=== PATIENT | female | born 1980 | race African-American/Black ===

== ENCOUNTER 2018-10-08 15:47 | Inpatient (IN) ==
[2018-10-08] MEDS ORDERED: BUTORPHANOL 2 MG/ML VIAL IV PRN (16:08)
[2018-10-08] MEDS ORDERED: MEPERIDINE 50 MG/1 ML VIAL IV PRN (16:08)
[2018-10-08] MEDS ORDERED: ONDANSETRON 4 MG/2 ML VIAL IV PRN ×2 (16:08→18:17)
[2018-10-08] MEDS ORDERED: PENICILLIN G POTASSIUM INJ 5,000,000 UNIT in SODIUM CHLORIDE 0.9% 100 ML IV ONE (16:13)
[2018-10-08] MEDS ORDERED: MAGNESIUM SULF RIDER 4 GM in PREMIX 1 EACH IV ONE (16:15)
[2018-10-08] MEDS ORDERED: hydrALAZINE 20 MG/1 ML VIAL ONE (16:17)
[2018-10-08] MEDS ORDERED: MAGNESIUM SULF RIDER 100 ML IV ONE (16:18)
[2018-10-08] MEDS: hydrALAZINE 20 MG/1 ML VIAL IV PRN ×2 (16:18→16:38)
[2018-10-08 16:27] LABS: Basophils % 0.2 % (0.0-0.8); Hematocrit 37.9 VOL% (35.7-47.0); Hemoglobin 13.1 GM/DL (12.0-16.0); Immature Granulocytes % 0.9 %; Immature Granulocytes Absolute 0.08 #; Lymphocytes # 1.9 10*3/uL (1.4-4.0); Mean Corpuscular HGB Conc 34.6 GM/DL (32-36); Mean Corpuscular Hemoglobin 34 PG (27-34); Mean Corpuscular Volume 97.4 FL (87-102); Mean Platelet Volume 11.7 FL (9.6-12.0); Monocytes # 0.8 10*3/uL (0.11-0.8); Monocytes % 8.7 % (1.7-12.7); Neutrophils # 6.2 10*3/uL (1.4-7.4); Neutrophils % 69.2 % (38.7-73.9); Platelet Count 123 T/CUMM (130-400); Red Blood Count 3.89 MC/CUMM (3.8-5.5); Red Cell Distribution Width 14.1 % (9.3-17.3)
[2018-10-08] MEDS ORDERED: LACTATED RINGERS 1,000 ML IV SCH (16:30)
[2018-10-08] MEDS: MAGNESIUM SULF DRIP 40 GM/1,000 ML ML IV SCH (16:44)
[2018-10-08 16:55] LABS: Albumin 2.7 G/DL (3.4-5.0); Bilirubin,Direct 0.12 MG/DL (0.0-0.20); Bilirubin,Total 0.7 MG/DL (0.2-1.0); Calcium 9.2 MG/DL (8.5-10.1); Osmolality,Calculated 276.4 MOS/KG (273-304); Potassium 3.3 MMOL/L (3.5-5.1); Total Protein 6.7 G/DL (6.4-8.3); Uric Acid 5.7 MG/DL (2.6-6.0)
[2018-10-08] MEDS ORDERED: LABETALOL 20 MG/4 ML SYRINGE IV ONE ×3 (16:58→18:15)
[2018-10-08] MEDS ORDERED: OXYTOCIN/LR 30 UNIT/1,000 ML BAG IV ONE (17:03)
[2018-10-08] MEDS ORDERED: OXYTOCIN 10 UNIT/ML VIAL ONE (17:03)
[2018-10-08] MEDS ORDERED: miSOPROStol 200 MCG TABLET ONE (17:03)
[2018-10-08] MEDS ORDERED: METHYLERGONOVINE 0.2 MG/1 ML AMP ONE (17:04)
[2018-10-08] MEDS ORDERED: OXYTOCIN/LR 20 UNIT/1,000 ML BAG IV ONE ×2 (17:04→18:17)
[2018-10-08] MEDS ORDERED: CARBOPROST TROMETHAMINE 250 MCG/ML AMP IM ONE (17:04)
[2018-10-08 17:12] LABS: INR 0.9; PT Patient Result 9.4 SECS; Partial Thromboplastin Time 26.1 SECS (0-40)
[2018-10-08] MEDS ORDERED: LIDOCAINE 2% 20 ML VIAL ONE (17:29)
[2018-10-08 18:09] LABS: Cord Venous Blood HCO3 16.2 MMOL/L; Cord Venous Blood PCO2 50.8 MMHG; Cord Venous Blood PO2 28.2
[2018-10-08] MEDS ORDERED: LANOLIN 50% CREAM 0.3 OZ TUBE TOP PRN (18:17)
[2018-10-08] MEDS ORDERED: HYDROCORTISONE 2.5% RECTAL CREAM 30 GM TUBE TOP PRN (18:17)
[2018-10-08] MEDS ORDERED: ACETAMINOPHEN 325 MG TABLET PO PRN (18:17)
[2018-10-08] MEDS ORDERED: oxyCODONE/ACETAMINOPHEN 5-325 MG TABLET PO PRN ×2 (18:17)
[2018-10-08] MEDS ORDERED: MEASLES/MUMPS/RUBELLA VACCINE 0.5 ML VIAL SUBCUT ONE (18:17)
[2018-10-08] MEDS ORDERED: DIPH/TET/ACEL PERT BOOSTER VACCINE 0.5 ML VIAL IM ONE (18:17)
[2018-10-08] MEDS ORDERED: BENZOCAINE 20%/MENTHOL 0.5% SPRAY 56 GM CAN TOP PRN (18:17)
[2018-10-08] MEDS ORDERED: IBUPROFEN 800 MG TABLET PO PRN (18:17)
[2018-10-08] MEDS ORDERED: WITCH HAZEL PADS 100/JAR TOP PRN (18:17)
[2018-10-08] MEDS ORDERED: BISACODYL 10 MG SUPP RECTAL PRN (18:17)
[2018-10-08] MEDS ORDERED: RHO(D) IMMUNE GLOBULIN 300 MCG SYRINGE IM ONE (18:17)
[2018-10-08 18:23] LABS: Apearance,Urine CLEAR (Clear); Bacteria,Urine Occasional /HPF (Few); Bilirubin,Urine Negative (Negative); Blood, Urine Small mg/dL (Negative); Glucose,Urine (UA) 50 mg/dL (Negative); Hyaline Casts,Urine 1 /LPF (0-3); Ketones,Urine 20 mg/dL (Negative); Mucus,Urine Occasional /LPF (Occasional); Nitrite,Urine Negative (Negative); Protein,Urine 100 MG/DL; RBC,Urine 3 /HPF (0-4); Urine Color Yellow (Yellow); Urine Specific Gravity 1.019 (1.001-1.035); Urine Urobilinogen < 2.0 EU/DL (0.2-1.0); WBC,Urine 7 /HPF (0-6)
[2018-10-08 18:39] LABS: Barbiturates Screen,Urine Negative (Negative); Benzodiazepines Screen,Urine Negative (Negative); Cannabinoid Screen,Urine Negative (Negative); Opiate Screen,Urine Negative (Negative); Phencyclidine Screen,Urine Negative (Negative)
[2018-10-08] MEDS ORDERED: PENICILLIN G POTASSIUM INJ 2,500,000 UNIT in SODIUM CHLORIDE 0.9% 100 ML IV SCH (20:00)
[2018-10-08] MEDS ORDERED: LABETALOL 200 MG TABLET PO SCH (21:00)
[2018-10-08 23:43] LABS: HIV Antigen/Antibody Result Nonreactive (Nonreactive); Hepatitis B Surface Ag Quant 0.12 Index; Hepatitis B Surface Ag Result Negative (Negative); Rubella Antibody IgG 41.2 IU/ML
[2018-10-09 07:13] LABS: Basophils % 0.1 % (0.0-0.8); Eosinophils % 0.1 % (0.00-10.9); Hematocrit 35.5 VOL% (35.7-47.0); Hemoglobin 11.8 GM/DL (12.0-16.0); Immature Granulocytes % 0.5 %; Immature Granulocytes Absolute 0.06 #; Lymphocytes # 1.4 10*3/uL (1.4-4.0); Lymphocytes % 10.4 % (21.3-54.2); Mean Corpuscular HGB Conc 33.2 GM/DL (32-36); Mean Corpuscular Hemoglobin 33 PG (27-34); Mean Corpuscular Volume 98.1 FL (87-102); Mean Platelet Volume 12.1 FL (9.6-12.0); Monocytes # 1.1 10*3/uL (0.11-0.8); Monocytes % 8.6 % (1.7-12.7); Neutrophils # 10.4 10*3/uL (1.4-7.4); Neutrophils % 80.3 % (38.7-73.9); Platelet Count 106 T/CUMM (130-400); Red Blood Count 3.62 MC/CUMM (3.8-5.5); Red Cell Distribution Width 14.5 % (9.3-17.3)
[2018-10-09] MEDS: LABETALOL 100 MG TABLET PO SCH ×3 (08:40→20:27)
[2018-10-09] MEDS ORDERED: POTASSIUM CHLORIDE 20 MEQ TABLET PO SCH (09:00)
[2018-10-09] MEDS ORDERED: LABETALOL 200 MG TABLET PO SCH (09:00)
[2018-10-09] MEDS ORDERED: POTASSIUM CHLORIDE 20 MEQ TABLET PO ONE (11:30)
[2018-10-09] MEDS: DOCUSATE SODIUM 100 MG CAPSULE PO SCH ×2 (11:31→21:35)
[2018-10-09 13:08] LABS: Basophils % 0.1 % (0.0-0.8); Eosinophils % 0.1 % (0.00-10.9); Hematocrit 32.7 VOL% (35.7-47.0); Hemoglobin 10.9 GM/DL (12.0-16.0); Immature Granulocytes % 0.6 %; Immature Granulocytes Absolute 0.07 #; Lymphocytes # 1.5 10*3/uL (1.4-4.0); Lymphocytes % 12.7 % (21.3-54.2); Mean Corpuscular HGB Conc 33.3 GM/DL (32-36); Mean Corpuscular Hemoglobin 33 PG (27-34); Mean Corpuscular Volume 100.3 FL (87-102); Mean Platelet Volume 10.9 FL (9.6-12.0); Monocytes # 0.9 10*3/uL (0.11-0.8); Neutrophils # 9.1 10*3/uL (1.4-7.4); Neutrophils % 78.5 % (38.7-73.9); Platelet Count 103 T/CUMM (130-400); Red Blood Count 3.26 MC/CUMM (3.8-5.5); Red Cell Distribution Width 14.6 % (9.3-17.3); White Blood Count 11.5 T/CUMM (4-12)
[2018-10-09 13:28] LABS: INR 0.8; PT Patient Result 9.1 SECS; Partial Thromboplastin Time 26.4 SECS (0-40)
[2018-10-09 13:50] LABS: Alanine Aminotransferase 22 U/L (13-56); Albumin 2.1 G/DL (3.4-5.0); Alkaline Phosphatase 121 U/L (45-117); Aspartate Amino Transferase 22 U/L (0-37); Bilirubin,Total < 0.39 MG/DL (0.2-1.0); Blood Urea Nitrogen 8 MG/DL (7-18); Calcium 7.3 MG/DL (8.5-10.1); Glucose 106 MG/DL (74-106); Osmolality,Calculated 270.8 MOS/KG (273-304); Potassium 3.6 MMOL/L (3.5-5.1); Sodium 137 MMOL/L (136-145); Total Protein 5.5 G/DL (6.4-8.3); Uric Acid 5.8 MG/DL (2.6-6.0)
[2018-10-09] MEDS: MAGNESIUM SULF DRIP 40 GM/1,000 ML ML IV SCH (14:10)
[2018-10-10] MEDS: LABETALOL 100 MG TABLET PO SCH ×3 (01:58→16:21)
[2018-10-10] MEDS: DOCUSATE SODIUM 100 MG CAPSULE PO SCH (08:09)
[2018-10-10 16:21] VITALS: BP 130/85
== END 2018-10-10 16:35 | disposition home or self-care (01) | DRG 807 ==
LOC: N.LDOUT 15:47 → N.LD 15:53 → N.OB 10-09 20:57
PROVIDERS: ADMIT Obstetrics & Gynecology; ATTEND Obstetrics & Gynecology